=== PATIENT | female | born 1935 | race Caucasian/White ===

== ENCOUNTER → 2020-02-28 | Outpatient (CLI) | payer MEDICARE ==
[2020-02-28 11:31] LABS: Basophils # (A) 0.1 k/uL (0-0.2); Basophils % (A) 1 %; Eosinophils # (A) 0.2 k/uL (0-0.7); Eosinophils % (A) 3 %; HCT 46.7 % (34.0-46.0); HGB 15.2 gm/dL (11.4-16.0); Lymphocytes % (A) 19 %; MCH 30.1 pg (25.0-35.0); MCHC 32.7 g/dL (31.0-37.0); MCV 92.1 fL (80.0-100.0); Mean Platelet Volume 7.4; Monocytes # (A) 0.4 k/uL (0-1.0); Monocytes % (A) 7 %; Neutrophils # (A) 3.6 k/uL (1.3-7.7); Neutrophils % (A) 69 %; Platelet Count 223 k/uL (150-450); RBC 5.07 m/uL (3.80-5.40); RDW 12.6 % (11.5-15.5); WBC 5.2 k/uL (3.8-10.6)
[2020-02-28 11:46] LABS: Calcium 9.6 mg/dL (8.4-10.2); Potassium 4.5 mmol/L (3.5-5.1)
== END | disposition home or self-care (01) ==
LOC: LABPAT 10:40
PROVIDERS: ATTEND Urology
DX: Z01.818 Encounter for other preprocedural examination (principal); N39.46 Mixed incontinence; N36.42 Intrinsic sphincter deficiency (ISD)
CPT/HCPCS: 80048; 85025

== ENCOUNTER 2020-03-06 05:54 | Day surgery (SDC) | payer MEDICARE ==
[2020-03-04 11:22] VITALS: BMI 25.7
[2020-03-06] MEDS ORDERED: LACTATED RINGERS 1,000 ML IV SCH (06:04)
[2020-03-06] MEDS ORDERED: LIDOCAINE 1% (10MG/ML) FOR IV START INTRADERMA PRN (06:04)
[2020-03-06] MEDS ORDERED: ONDANSETRON 4 MG/2 ML VIAL IVP ONE (06:04)
--- NOTE | 2020-03-06 06:07 | P.GSHP ---
History of Present Illness H&P Date: 03/01/20 Chief Complaint: Urinary incontinence The patient is an 84-year-old white female with a 7 year history of progressive mixed urinary incontinence, requiring up to 10 pads daily. The stress component is predominant. Urodynamic testing showed no detrusor instability. Stress i ncontinence was demonstrated, with a Valsalva leak point pressure of approximately 70 cm water. Alternative treatment options were reviewed, and she has elected to undergo cystoscopy with Coaptite implant. - Genitourinary (Female) Genitourinary: Reports as per [facility] Past Medical History - Past Family History Sister(s) Family Medical History: Cancer Additional Family Medical History / Comment(s): CERVICAL, BREAST AND FINGER CANCER Medications and Allergies Home Medications Medication Instructions Recorded Confirmed Type Albuterol Inhaler [Ventolin Hfa 1 puff INHALATION DIRECTED PRN 03/04/20 History Inhaler] Calcium Carbonate [Calcium] 1,200 mg PO DAILY 03/04/20 03/04/20 History Cholecalciferol [Vitamin D3 (25 50 mcg PO DAILY 03/04/20 03/04/20 History Mcg = 1000 Iu)] Eye Vitamin 1 cap PO DAILY 03/04/20 History Fluticasone Nasal [place] [Flonase 1 spray EA NOSTRIL DAILY 03/04/20 03/04/20 History Nasal [place]] Levothyroxine Sodium [Synthroid] 50 mcg PO DAILY 03/04/20 03/04/20 History Zinc 50 mg PO DAILY 03/04/20 03/04/20 History Allergies Allergy/AdvReac Type Severity Reaction Status Date / Time aspirin AdvReac Unknown BRUISING Verified 03/04/20 10:54 Surgical - Exam - General well developed, well nourished, no distress - Respiratory normal respiratory effort - Abdomen Abdomen: soft, non tender, no guarding, no rigid, no rebound - Genitourinary normal external genitalia, no perineal/vulvar lesions - Psychiatric oriented to time, oriented to person, oriented to place, speech is normal, memory intact Assessment and Plan (1) Mixed incontinence Current Visit: No Status: Acute Code(s): N39.46 - MIXED INCONTINENCE SNOM ED Code(s): 50534512 Plan: Coaptite: I explained the options concerning surgery versus medication. We discussed pelvic floor exercises, sling procedures, and E-Stim as alternative treatments. I advised her with regard to Coaptite injections, how the surgery was performed, the possibility that no relief or only transient relief will be obtained, and the possibility of infection or urinary retention post operatively. The possible need for multiple treatments was also discussed. The patient expressed an understanding with regard to possible complications and outcomes.
[2020-03-06] MEDS ORDERED: DEXAMETHASONE SOD PHOSPHATE 4 MG/ML 1 ML VIAL IV ONE (06:25)
[2020-03-06] MEDS ORDERED: HYDROmorphone 0.5 MG/0.5 ML SYRINGE IVP PRN (07:00)
[2020-03-06] MEDS ORDERED: PROPOFOL 10 MG/ML 20 ML VIAL IV ONE (07:14)
[2020-03-06] MEDS ORDERED: LIDOCAINE 1% INJ 10MG/ML (20 ML MDV) ONE (07:14)
[2020-03-06] MEDS ORDERED: fentaNYL (PF) 50 MCG/ML 2 ML AMP ONE (07:14)
--- NOTE | 2020-03-06 07:52 | P.OP ---
Date of Procedure: 03/06/20 Preoperative Diagnosis: Mixed urinary incontinence, intrinsic sphincter deficiency Postoperative Diagnosis: Same Procedure(s) Performed: Cystoscopy with Coaptite injections Anesthesia: CALVIN Surgeon: Chandler Priest Estimated Blood Loss (ml): 0 IV fluids (ml): 200 Pathology: none sent Condition: stable Disposition: PACU Indications for Procedure: The patient is an 84-year-old white female with a 7 year history of progressive mixed urinary incontinence, requiring up to 10 pads daily. The stress component is predominant. Urodynamic testing showed no detrusor instability. Stress incontinence was demonstrated, with a Valsalva leak point pressure of teofilo roximately 70 cm water. Alternative treatment options were reviewed, and she has elected to undergo cystoscopy with Coaptite implant. Operative Findings: Excellent coaptation of proximal urethra achieved. Description of Procedure: The patient was taken to the operating room and placed in the dorsolithotomy position, with her legs supported in Noé stirrups. The external genitalia was prepped and draped sterilely. The 30 lens was used to introduce the 19-[place] start cystoscopic sheath through the urethra and into the bladder under direct vision. The urethra was unremarkable. The bladder was examined in its entirety. Both ureteral orifices were normal anatomic location and configuration, and clear urine effluxed from both. No tumors or foreign bodies were seen. The long transurethral needle was passed through a 20-[place] sheath specially designed for injection. The cystoscope was advanced to the level of the mid urethra. The needle was then advanced such that a perforated the mucosa, and it was then advanced within the submucosal plane to the level of the proximal urethra. Coaptite was injected in 3 sites. A total of 3 syringes were injected. Very good coaptation of the proximal urethra was achieved. The bladder was drained, and the procedure was terminated. The patient tolerated the procedure well was taken to the recovery room in stable condition.
[2020-03-06 08:02] VITALS: TEMP 97
[2020-03-06 08:31] VITALS: RESP 16
[2020-03-06 09:07] VITALS: BP 153/89; PULSE 69
== END 2020-03-06 09:26 | disposition home or self-care (01) ==
LOC: OR 05:54
PROVIDERS: ATTEND Urology
DX: N39.46 Mixed incontinence (principal); N36.42 Intrinsic sphincter deficiency (ISD); Z79.890 Hormone replacement therapy; Z79.899 Other long term (current) drug therapy; Z98.890 Other specified postprocedural states; Z88.6 Allergy status to analgesic agent; Z80.3 Family history of malignant neoplasm of breast; Z80.49 Family history of malignant neoplasm of other genital organs
CPT/HCPCS: 51715; L8606; J1100; J0690; J2405; J2001; J3010; J2704

== ENCOUNTER → 2021-05-07 | Outpatient (CLI) | payer MEDICARE ==
[2021-05-07 18:56] LABS: Basophils # (A) 0.05 X 10*3/uL (0.00-0.10); Basophils % (A) 0.9 %; Eosinophils # (A) 0.22 X 10*3/uL (0.04-0.35); Eosinophils % (A) 3.9 %; HCT 48.9 % (37.2-46.3); HGB 15.2 g/dL (12.0-15.0); Immature Grans, Automated 0.2 %; Lymphocytes # (A) 1.13 X 10*3/uL (0.90-5.00); Lymphocytes % (A) 20.1 %; MCH 29.3 pg (27.0-32.0); MCHC 31.1 g/dL (32.0-37.0); MCV 94.2 fL (80.0-97.0); Mean Platelet Volume 11.5 fL (9.5-12.2); Monocytes # (A) 0.55 X 10*3/uL (0.20-1.00); Monocytes % (A) 9.8 %; NRBC Per 100 WBC 0 /100 WBCS (0.0-0.0); Neutrophils # (A) 3.67 X 10*3/uL (1.80-7.70); Neutrophils % (A) 65.1 %; Platelet Count 242 X 10*3/uL (140-440); RBC 5.19 X 10*6/uL (4.10-5.20); WBC 5.63 X 10*3/uL (4.50-10.00)
[2021-05-07 19:06] LABS: African American GFR (CKD) 74.9 (60.0-200.0); Albumin 4.5 g/dL (3.8-4.9); Albumin/Globulin Ratio 1.74 (1.60-3.17); BUN/Creat Ratio 22.4 Ratio (12.00-20.00); Blood Urea Nitrogen 18.3 mg/dL (9.0-27.0); Carbon Dioxide 22.8 mmol/L (20.0-27.5); Globulin 2.6 g/dL (1.6-3.3); Non-African American GFR(CKD) 64.6 (60.0-200.0); Total Bilirubin 0.5 mg/dL (0.30-1.20)
== END | disposition home or self-care (01) ==
LOC: LABPAT 10:16
PROVIDERS: ATTEND Urology
DX: Z01.812 Encounter for preprocedural laboratory examination (principal); N39.46 Mixed incontinence; N36.42 Intrinsic sphincter deficiency (ISD)
CPT/HCPCS: 80053; 85025; 87086

== ENCOUNTER 2021-05-14 07:26 | Day surgery (SDC) | payer MEDICARE ==
[2021-05-12 10:06] VITALS: BMI 24.2
--- NOTE | 2021-05-13 06:44 | P.GSHP ---
History of Present Illness H&P Date: 05/13/21 Chief Complaint: Urinary incontinence The patient is an 85-year-old white female with an 8 year history of progressive mixed urinary incontinence, requiring up to 10 pads daily. The stress component is predominant. Urodynamic testing showed no detrusor instability. Stress incontinence was demonstrated, with a Valsalva leak point pressure of approximately 70 cm water. Alternative treatment options were reviewed, and she underwent cystoscopy with Coaptite implant in February 2020. Her incontinence improved, and her pad use decreased to 4 pads daily. However, the incontinence has recently increased such that she requires up to 8 pads daily. She is currently taking Macrobid for an E. coli UTI. She has been advised to undergo repeat Coaptite implant. - Constitutional Constitutional: Reports as per HPI Past Medical History Past Medical History: Cancer, Thyroid Disorder Additional Past Medical History / Comment(s): Recurrent UTI's. Hx Covid 12/04. SOB, more in Summer months. Hx left breast cancer 2009, had chemo and surgery. History of Any Multi-Drug Resistant Organisms: None Reported Past Surgical History: Breast Surgery Additional Past Surgical History / Comment(s): Left breast lumpectomy. Eye lift. Tummy tuck. Cystoscopy. Past Anesthesia/Blood Transfusion Reactions: No Reported Reaction, Motion Sickness Additional Past Anesthesia/Blood Transfusion Reaction / Comment(s): "Don't need much." Past Psychological History: No Psychological Hx Reported Smoking Status: Former smoker Past Alcohol Use History: None Reported Additional Past Alcohol Use History / Comment(s): Smoked at age 14 only. Past Drug Use History: None Reported - Past Family History Sister(s) Family Medical History: Cancer Medications and Allergies Home Medications Medication Instructions Recorded Confirmed Type Albuterol Inhaler [Ventolin Hfa 1 puff INHALATION DIRECTED PRN 03/04/20 03/04/20 History Inhaler] Levothyroxine Sodium [Synthroid] 50 mcg PO QAM 03/04/20 03/04/20 History Cranberry (Unknown Dose) 1 tab PO DIRECTED 05/12/21 05/12/21 History Multivitamins, Thera [Multivitamin 1 tab PO DAILY 05/12/21 05/12/21 History (formulary)] Allergies Allergy/AdvReac Type Severity Reaction Status Date / Time Sulfa (Sulfonamide Allergy "Burning" Verified 05/12/21 09:45 Antibiotics) aspirin AdvReac Unknown BRUISING Verified 05/12/21 09:45 Surgical - Exam - General well developed, well nourished, no distress - Respiratory normal respiratory effort - Abdomen Abdomen: soft, non tender, no guarding, no rigid, no rebound - Genitourinary normal external genitalia, normal perineum, no perineal/vulvar lesions - Psychiatric oriented to time, oriented to person, oriented to place, speech is normal, memory intact Assessment and Plan (1) Mixed incontinence Status: Acute Code(s): N39.46 - MIXED INCONTINENCE SNOMED Code(s): 15317483 Plan: Coaptite: I explained the options concerning surgery versus medication. We discussed pelvic floor exercises, sling procedures, and E-Stim as alternative treatments. I advised her with regard to Coaptite injections, how the surgery was performed, the possibility that no relief or only transient relief will be obtained, and the possibility of infection or urinary retention post operatively. The possible need for multiple treatments was also discussed. The patient expressed an understanding with regard to possible complications and outcomes.
[~2021-05-14 07:26] MED LIST: LACTATED RINGERS 1,000 ML IV SCH; fentaNYL (PF) 50 MCG/ML 2 ML AMP IV PRN
[2021-05-14] MEDS ORDERED: ONDANSETRON 4 MG/2 ML VIAL ONE (08:16)
[2021-05-14] MEDS ORDERED: ONDANSETRON 4 MG/2 ML VIAL IVP ONE (08:20)
[2021-05-14] MEDS ORDERED: PHENYLEPHRINE-0.9% NACL SYG 1,000 MCG/10 ML SYRINGE ONE (08:21)
[2021-05-14] MEDS ORDERED: GLYCOPYRROLATE 0.2 MG/ML 2 ML VIAL ONE (08:21)
[2021-05-14] MEDS ORDERED: PROPOFOL 10 MG/ML 20 ML VIAL IV ONE (08:21)
[2021-05-14] MEDS ORDERED: LIDOCAINE 1% INJ 10MG/ML (20 ML MDV) ONE (08:21)
[2021-05-14] MEDS ORDERED: fentaNYL (PF) 50 MCG/ML 2 ML AMP ONE (08:21)
[2021-05-14] MEDS ORDERED: DEXAMETHASONE SOD PHOSPHATE 4 MG/ML 1 ML VIAL IVP ONE (08:22)
--- NOTE | 2021-05-14 09:12 | P.OP ---
Date of Procedure: 05/14/21 Preoperative Diagnosis: Mixed urinary incontinence, intrinsic sphincter deficiency Postoperative Diagnosis: Same Procedure(s) Performed: Cystoscopy with Coaptite injections Anesthesia: CALVIN Surgeon: Chandler Priest Estimated Blood Loss (ml): 0 IV fluids (ml): 300 Pathology: none sent Condition: stable Disposition: PACU Indications for Procedure: The patient is an 85-year-old white female with an 8 year history of progressive mixed urinary incontinence, requiring up to 10 pads daily. The stress component is predominant. Urodynamic testing showed no detrusor instability. Stress incontinence was demonstrated, with a Valsalva leak point pressure of ap proximately 70 cm water. Alternative treatment options were reviewed, and she underwent cystoscopy with Coaptite implant in February 2020. Her incontinence improved, and her pad use decreased to 4 pads daily. However, the incontinence has recently increased such that she requires up to 8 pads daily. She is currently taking Macrobid for an E. coli UTI. She has been advised to undergo repeat Coaptite implant. Operative Findings: Coaptation of the proximal urethra achieved. Description of Procedure: The patient was taken to the operating room and placed in the dorsolithotomy position, with her legs supported in Noé stirrups. The external genitalia was prepped and draped sterilely. The 30 lens was used to introduce the 19-[place] start cystoscopic sheath through the urethra and into the bladder under direct vision. The urethra was unremarkable. The bladder was examined in its entirety. Both ureteral orifices were normal anatomic location and configuration, and clear urine effluxed from both. No tumors or foreign bodies were seen. The long transurethral needle was passed through a 20-[place] sheath specially designed for injection. The cystoscope was advanced to the level of the mid urethra. The needle was then advanced such that a perforated the mucosa, and it was then advanced within the submucosal plane to the level of the proximal urethra. Coaptite was injected in several sites. A total of 4 syringes were injected. In the left lateral side, Coaptite was injected but unfortunately the mucosa tore and the Coaptite leaked. Nonetheless, very good coaptation of the proximal urethra was achieved. The bladder was drained, and the procedure was terminated. The patient tolerated the procedure well was taken to the recovery room in stable condition.
[2021-05-14 09:13] VITALS: RESP 16; TEMP 98
[2021-05-14 10:30] VITALS: BP 153/82; PULSE 70
== END 2021-05-14 10:47 | disposition home or self-care (01) ==
LOC: OR 07:26
PROVIDERS: ATTEND Urology
DX: N39.46 Mixed incontinence (principal); N36.42 Intrinsic sphincter deficiency (ISD); E07.9 Disorder of thyroid, unspecified; Z87.440 Personal history of urinary (tract) infections; Z85.3 Personal history of malignant neoplasm of breast; Z92.21 Personal history of antineoplastic chemotherapy; Z87.891 Personal history of nicotine dependence; Z86.16 Personal history of COVID-19; Z98.890 Other specified postprocedural states; Z88.6 Allergy status to analgesic agent; Z88.2 Allergy status to sulfonamides
CPT/HCPCS: 51715; L8606; J1100; J0690; J2405; J2001; J3010; J2370; J2704